=== PATIENT | male | born 1950 | race Caucasian/White ===

== ENCOUNTER 2016-11-21 03:47 | Emergency (ER) ==
[2016-11-21 04:03] VITALS: BP 112/62; TEMP 97.1; BMI 31.5
[2016-11-21] MEDS ORDERED: SODIUM CHLORIDE 1,000 ML IV STA (04:13)
[2016-11-21] MEDS ORDERED: ZOFRAN 4 MG/2 ML IVP STA (04:13)
[2016-11-21] MEDS ORDERED: MORPHINE 2 MG/ML SYRINGE IVP STA ×2 (04:13→05:02)
[2016-11-21 04:22] LABS: BASOPHILS # (AUTO) 0.1 K/uL (0-0.2); EOSINOPHILS # (AUTO) 0.3 K/ul (0.0-0.7); EOSINOPHILS % (AUTO) 2.4 % (0.0-7.0); HEMATOCRIT 39.4 % (42.0-52.0); IMMATURE GRANULOCYTE % (AUTO) 0.3 % (0.0-5.0); LYMPHOCYTES # (AUTO) 2.2 K/uL (0.60-3.4); LYMPHOCYTES % (AUTO) 17.5 (10.0-50.0); MEAN CORPUSCULAR HEMOGLOBIN 29.2 pg (27.0-31.0); MEAN CORPUSCULAR VOLUME 88.5 fl (80.0-94.0); MONOCYTES # (AUTO) 1.1 K/uL (0.4-2.0); MONOCYTES % (AUTO) 8.6 (0-10); NEUTROPHILS # (AUTO) 8.7 K/ul (2.0-6.9); NEUTROPHILS % (AUTO) 70.2; PLATELET COUNT 301 10^3/uL (140-440); RED BLOOD COUNT 4.45 10^6/ul (4.70-6.10); WHITE BLOOD COUNT 12.34 K/ul (4.2-10.2)
[2016-11-21 04:43] LABS: ALBUMIN 3.8 g/dL (3.4-5.0); ALBUMIN/GLOBULIN RATIO 1.12; ANION GAP 14.5; BILIRUBIN,TOTAL 0.28 mg/dL (0.00-1.20); BUN/CREATININE RATIO 15.21; CALCIUM 9.3 mg/dL (8.2-10.2); CREATININE 1.38 mg/dL (0.60-1.10); POTASSIUM 4.5 mmol/L (3.5-5.1); TOTAL PROTEIN 7.2 g/dL (5.8-8.1)
--- NOTE | 2016-11-21 05:37 | CT ---
EXAM: CT brain without contrast HISTORY: Fall with injury and pain TECHNIQUE: CT of the brain without intravenous contrast FINDINGS: There is no acute hemorrhage midline shift or mass effect. No hydrocephalus or abnormal extra-axial fluid collection. Generalized involutional atrophy, moderate. Chronic microvascular ch anges of the white matter tracts, moderate. No acute large vessel territorial infarct is seen. The bony cranium appears normal. Fluid and mucosal thickening of the maxillary sinuses, sphenoid and et hmoid sinuses. Soft tissues without significant abnormality. IMPRESSION: 1. Involutional atrophy and chronic microvascular changes of the white matter tracts. No acute int racranial abnormality is seen.
--- NOTE | 2016-11-21 05:38 | CT ---
CT cervical spine without contrast HISTORY: Fall with injury and pain TECHNIQUE: CT of the cervical spine with multiplanar reformations. FINDINGS: Reformatted images demonstrate normal alignment with preservation of vertebral body heigh t. Multilevel endplate spondylosis mostly projecting anteriorly. Multilevel facet arthropathy. No fracture seen on the axial or reformatted images. No acute surrounding soft tissue abnormalitites. L brian apices are clear. IMPRESSION: No acute findings in the cervical spine.
--- NOTE | 2016-11-21 05:49 | CT ---
Exam: CT of the chest without contrast History: Fall with chest pain Technique: [address] of the chest without intravascular contrast FINDINGS: Lung windows show no significant pulmonary parenchymal abnormality. No pleural fluid or pneumothorax. Atherosclerotic calcification of the aorta and coronary arteries. No pathologic lymp h node enlargement or abundance. No acute findings of the chest wall soft tissues or bony thorax. No acute findings of the upper abdomen. Impression: 1. No acute findings of the chest
--- NOTE | 2016-11-21 06:04 | CT ---
Exam: CT of the right lower extremity without contrast History: Fall with ankle deformity Technique: [address] of the right lower leg from the knee to the ankle FINDINGS: No radiograph for comparison. The the right knee shows at least moderate tricompartmenta l osteoarthritic change with marginal osteophytosis. No acute bony abnormalities are seen. No acut e bony abnormalities of the upper portion of the tibia and fibula diaphysis. There is a fracture of the distal fibula and medial malleolus with lateral displacement of the talus about 1 cm. Fracture of the distal fibula is at the level of the ankle mortise and extending superiorly and laterally w ith some comminution. There is a 8 x 1 mm osseous joint body in the medial corner of the talar dome. Underlying marginal osteophytosis indicating osteoarthritic change of the tibiotalar joint. The c alcaneus is intact. There is spurring on the Achilles and plantar surfaces of the calcaneus. Impression: 1. Supination external rotation injury of the ankle with medial malleolus and distal fibula fracture s. Associated lateral translation of the talus. 2. Osteoarthritic change of the knee
[2016-11-21] MEDS ORDERED: DILAUDID 1 MG/ML SYRINGE IVP STA ×2 (06:06→06:46)
--- NOTE | 2016-11-21 06:13 | ED.PDOC ---
General ED Provider: Dr. TREVER VILLA-ER Chief Complaint: Fall Stated Complaint: i slipped on the stairs and hurt my ankle Time Seen by Physician: 03:50 Mode of Arrival: Wheelchair Information Source: Patient Exam Limitations: No limitations Primary Care Provider: TYSON TAYLOR Nursing and Triage Documentation Reviewed and Agree: Yes Musculoskeletal Complaint Exam - Ankle/Foot Complaint/Exam Location of Injury: Reports: Right, Ankle Mechanism of Injury: Reports: Trauma Onset/Duration: 45min Symptoms Are: Reports: Still present Onset of Pain: Reports: Immediate Initial Severity: Mild Current Severity: Moderate Location: Reports: Discrete (right ankle) Character: Reports: Dull, Aching, Throbbing, Stiffness Alleviating: Reports: Rest Aggravating: Reports: Movement, Weight bearing, Prolonged standing Able to Bear Weight: No Associated Signs and Symptoms: Reports: Swelling Gout Risk Factors: Reports: Male Lower Extremity Findings: Present: Swelling, Ecchymosis, Abnormal contour, Tenderness, Limited range of motion Tenderness: Present: Medial malleolus Limited Range of Motion: Present: Inversion, Eversion Differential Diagnosis: Closed Fracture Review of Systems - Review Of Systems Constitutional: Reports: No symptoms Eyes: Reports: No symptoms Ears, Nose, Mouth, Throat: Reports: No symptoms Respiratory: Reports: No symptoms Cardiac: Reports: No symptoms GI: Reports: No symptoms : Reports: No symptoms Musculoskeletal: Reports: Joint pain, Joint swelling Skin: Reports: No symptoms Neurological: Reports: No symptoms Endocrine: Reports: No symptoms Hematologic/Lymphatic: Reports: No symptoms All Other Systems: Reviewed and Negative Past Medical History - Past Medical History Endocrine: Reports: Unknown Cardiovascular: Reports: CAD, Hypertension Respiratory: Reports: COPD Hematological: Reports: Unknown Gastrointestinal: Reports: Unknown Genitourinary: Reports: Unknown Neuro/Psych: Reports: Other Musculoskeletal: Reports: Unknown Cancer: Reports: Unknown - Surgical History General Surgical History: Reports: Unknown - Family History Family History: Reports: Unknown - Social History Smoking Status: Never smoker Hx Substance Use: No Alcohol Screening: Occasionally Lives: With family - Immunizations Tetanus Shot up to Date: Yes Physical Exam - Physical Exam Appearance: Well-appearing, No pain distress, Well-nourished Pain Distress: Moderate Eyes: DOUG, EOMI, Conjunctiva clear ENT: Ears normal, Nose normal, Oropharynx normal Neck: Supple Respiratory: Airway patent Cardiovascular: RRR, Pulses normal, No rub, No murmur GI/: Soft, Nontender, No masses, Bowel sounds normal, No Organomegaly Musculoskeletal: Limited ROM Skin: Warm, Dry, Normal color Neurological: Sensation intact, Alert, Oriented Psychiatric: Affect appropriate, Mood appropriate Interpretation - Radiology Interpretation Radiology Interpretation By: Radiologist Radiology Results: Positive Exam Interpreted: CT Scan - EKG Interpretation Time of EKG #1: 06:13 Rate: Normal Rhythm: Sinus Ectopy: None Howard: NL ST Segment: Normal Re-Evaluation - Re-Evaluation Time of Re-Evaluation: 06:25 Status: Improved Vital Signs Stable: Yes Pain Level: 1 Appearance: NAD Lungs: Clear Skin: Warm and Dry Neuro: Alert and Oriented X3 CV: RRR Physician Notification - Case Discussed Physician Notified: dr burnett--accepted Time of Notification: 06:26 Critical Care Note - Critical Care Note Total Time (mins): 0 Course - Course Hematology/Chemistry: 11/21/16 04:20 11/21/16 04:20 Orders, Labs, Meds: Lab Review 11/21/16 04:20 WBC 12.34 H RBC 4.45 L Hgb 13.0 L Hct 39.4 L MCV 88.5 MCH 29.2 MCHC 33.0 RDW Coeff of Doreen 13.3 Plt Count 301 Immature Gran % (Auto) 0.3 Neut % (Auto) 70.2 Lymph % (Auto) 17.5 Gooding % (Auto) 8.6 Eos % (Auto) 2.4 Baso % (Auto) 1.0 Immature Gran # (Auto) 0.0 Neut # 8.7 H Lymph # 2.2 Gooding # 1.1 Eos # 0.3 Baso # 0.1 Sodium 132 L Potassium 4.5 Chloride 98 Carbon Dioxide 24 Anion Gap 14.5 BUN 21 H Creatinine 1.38 H Estimated GFR (MDRD) 52.00 BUN/Creatinine Ratio 15.21 Glucose 136 H Calcium 9.3 Total Bilirubin 0.28 AST 26 ALT 28 Alkaline Phosphatase 85 Total Protein 7.2 Albumin 3.8 Globulin 3.4 Albumin/Globulin Ratio 1.12 Orders Category Date Time Status EKG-(ED ONLY) Stat CARDIO 11/21/16 04:16 Completed ED IV/MEDIPORT/POWERPORT .ONCE EMERGENCY 11/21/16 04:13 Active Splint [ED SPLINT APPLICATION] .ONCE EMERGENCY 11/21/16 06:16 Active CBC W/ AUTO DIFF Stat LAB 11/21/16 04:20 Completed CMP [COMPREHENSIVE METABOLIC PANEL] Stat LAB 11/21/16 04:20 Completed 0.9 % Sodium Chloride [Saline Flush] MEDS 11/21/16 04:13 Ordered 1 syr IVF PRN PRN Hydromorphone HCl [Dilaudid 1 mg/ml Syringe] MEDS 11/21/16 06:06 Discontinued 1 mg IVP ONCE STA Morphine Sulfate [Morphine 2 mg/ml Syringe] MEDS 11/21/16 04:13 Discontinued 2 mg IVP ONCE STA Morphine Sulfate [Morphine 2 mg/ml Syringe] MEDS 11/21/16 05:02 Discontinued 2 mg IVP ONCE STA Ondansetron HCl/Pf [Zofran 4 mg/2 ml] MEDS 11/21/16 04:13 Discontinued 4 mg IVP ONCE STA Sodium Chloride 0.9% [Sodium Chloride] 1,000 ml MEDS 11/21/16 04:13 Active IV 100 mls/hr CT CERVICAL SPINE W/O CONTRAST Stat RADS 11/21/16 04:[address] CHEST W/O CONTRAST Stat RADS 11/21/16 04:[address] HEAD W/O CONTRAST Stat RADS 11/21/16 04:[address] TIB/FIB RIGHT WO CONTRAST Stat RADS 11/21/16 04:14 Completed Medications Generic Name Dose Route Start Last Admin Trade Name Freq PRN Reason Stop Dose Admin Sodium Chloride 1,000 mls @ 100 mls/hr 11/21/16 04:13 11/21/16 04:23 Sodium Chloride IV 11/21/16 14:12 100 mls/hr .Q10H STA Administration Sodium Chloride 1 syr 11/21/16 04:13 11/21/16 06:15 Saline Flush IVF 1 syr PRN PRN Administration To flush IV Discontinued Medications Generic Name Dose Route Start Last Admin Trade Name Freq PRN Reason Stop Dose Admin Hydromorphone HCl 1 mg 11/21/16 06:06 11/21/16 06:10 Dilaudid 1 Mg/Ml Syringe IVP 11/21/16 06:07 1 mg ONCE STA Administration Morphine Sulfate 2 mg 11/21/16 04:13 11/21/16 04:28 Morphine 2 Mg/Ml Syringe IVP 11/21/16 04:14 2 mg ONCE STA Administration Morphine Sulfate 2 mg 11/21/16 05:02 11/21/16 05:13 Morphine 2 Mg/Ml Syringe IVP 11/21/16 05:03 2 mg ONCE STA Administration Ondansetron HCl 4 mg 11/21/16 04:13 11/21/16 04:24 Zofran 4 Mg/2 Ml IVP 11/21/16 04:14 4 mg ONCE STA Administration Vital Signs: Temp Pulse Resp BP Pulse Ox 11/21/16 03:47 97.1 F L 115 H 20 112/62 95 Departure - Departure Time of Disposition: 06:26 Disposition: TSF SHORT-TRM HOSP Discharge Problem: Fracture of right ankle Qualifiers: Encounter type: initial encounter Fracture type: closed Qualifier Code: ( S82.891A) Other fracture of right lower leg, initial encounter for closed fracture Instructions: Ankle Fracture (ED) Condition: Good Pt referred to PMD for follow-up: Yes Allergies/Adverse Reactions: Allergies No Known Allergies Allergy (Unverified 11/21/16 04:06) Home Medications: Ambulatory Orders Amitriptyline HCl 100 mg PO DAILY 11/21/16 Amlodipine Besylate 5 mg PO DAILY 11/21/16 Carvedilol 25 mg PO DAILY 11/21/16 Furosemide [Lasix] 40 mg PO DAILY 11/21/16 Losartan Potassium [Cozaar] 100 mg PO DAILY 11/21/16 Potassium Chloride 20 meq PO DAILY 11/21/16 Pravastatin Sodium [Pravachol] 40 mg PO BEDTIME 11/21/16 Sertraline HCl 50 mg PO DAILY PRN 11/21/16 Transfer Form Completed: Yes Disposition Discussed With: Patient, Family
== END 2016-11-21 07:25 | disposition short-term general hospital (02) ==
LOC: ED 03:47
DX: S82.891A Other fracture of right lower leg, initial encounter for closed fracture (principal); I10 Essential (primary) hypertension; I25.10 Atherosclerotic heart disease of native coronary artery without angina pectoris; J44.9 Chronic obstructive pulmonary disease, unspecified; Z79.899 Other long term (current) drug therapy; W10.9XXA Fall (on) (from) unspecified stairs and steps, initial encounter
CPT/HCPCS: 36415; 80053; 85025; 93005; 93010; 96361; 96374; 96375; 96376; 99285

== ENCOUNTER 2016-11-21 07:25 | Outpatient (CLI) ==
[2016-11-21 04:03] VITALS: BMI 31.5
== END 2016-11-21 07:26 | disposition home or self-care (01) ==
LOC: AMBL 07:25
PROVIDERS: ATTEND Emergency Medicine
DX: S82.899A Other fracture of unspecified lower leg, initial encounter for closed fracture (principal); W10.9XXA Fall (on) (from) unspecified stairs and steps, initial encounter